=== PATIENT | female | born 2000 | race Caucasian/White ===

== ENCOUNTER 2023-08-04 14:16 | Inpatient (IN) | payer OTHER ==
[~2023-08-04 14:16] MED LIST: Bupivacaine 0.25% HCL 30 ML VIAL ONE
[2023-08-04] MEDS ORDERED: hydrALAZINE 20 MG/ML VIAL SLOW IVP PRN ×2 (17:49→17:55)
[2023-08-04] MEDS ORDERED: HYDROcodone/Acetaminophen 5/325 mg Tablet PO PRN (17:55)
[2023-08-04] MEDS ORDERED: Lidocaine 1% (PF) 30 ML VIAL SC PRN (17:55)
[2023-08-04] MEDS ORDERED: Ibuprofen 800 MG TAB PO PRN (17:55)
[2023-08-04] MEDS ORDERED: Promethazine HCl 25 MG/ML VIAL IM PRN (17:55)
[2023-08-04] MEDS ORDERED: Diphenoxylate HCl/Atropine Tablet PO PRN (17:55)
[2023-08-04] MEDS ORDERED: Methylergonovine 0.2 MG/ML VIAL IM PRN (17:55)
[2023-08-04] MEDS ORDERED: Acetaminophen 500 MG TAB PO PRN (17:55)
[2023-08-04] MEDS ORDERED: Ondansetron PF 4 MG/2 ML Vial IVP PRN (17:55)
[2023-08-04] MEDS ORDERED: Oxytocin 30 units/NS 500 ML 500 ML IV SCH (18:00)
[2023-08-04] MEDS ORDERED: Lactated Ringer's 1,000 ML IV SCH (18:00)
[2023-08-04 19:06] LABS: #Eosinphils 0.1 10x3/uL (0.0-0.5); #Monocytes 0.9 10x3/uL (0.0-1.1); #Neutrophils 7.8 10x3/uL (1.5-8.4); %Basophils 0.4 % (0.0-2.0); %Eosinophils 0.5 % (0.0-6.0); %Lymphocytes 15.2 % (18.0-47.0); %Monocytes 8.7 % (0.0-10.0); %Neutrophils 73.4 % (40.0-75.0); Hematocrit 28.3 % (34.9-44.5); Hemoglobin 8.9 g/dL (12.0-15.5); Mean Corpuscular HGB CONC 31.4 g/dL (32.0-36.0); Mean Corpuscular Hemoglobin 23.5 pg (27.0-33.0); Mean Corpuscular Volume 74.7 fl (81.6-98.3); Mean Platelet Volume 11.9 fl (7.4-10.4); Platelet Count 121 10x3/uL (150-450); RBC Distribution Width 14.2 % (11.5-14.5); Red Blood Cell (RBC) Count 3.79 10x6/uL (3.90-5.03); White Blood Cell (WBC) Count 10.6 10x3/uL (3.5-10.5)
[2023-08-04 19:14] LABS: ALT (SGPT) 11 U/L (8-55); AST (SGOT) 20 U/L (5-34); Albumin 3.5 g/dL (3.5-5.0); Alkaline Phosphatase 184 U/L (40-110); Anion Gap 12 mmol/L (10-20); BUN (Urea Nitrogen) 6 mg/dL (7.0-18.7); Bilirubin, Total 0.3 mg/dL (0.2-1.2); Calc. Creatinine Clearance 0 mL/min (70-130); Calcium 8.6 mg/dL (7.8-10.44); Carbon Dioxide 22 mmol/L (22-29); Chloride 107 mmol/L (98-107); Estimated GFR 127; Globulin 2.7 g/dL (2.4-3.5); Glucose 72 mg/dL (70-105); Potassium 3.5 mmol/L (3.5-5.1); Protein, Total 6.2 g/dL (6.0-8.3); Sodium 137 mmol/L (136-145)
[2023-08-04 19:31] LABS: HBSAg Index 0.22 S/CO (0-0.99); Hep B Surf Ag - L&D Non-Reactive S/CO (NonReactive); Syphilis Antibody Nonreactive (Nonreactive); Syphilis Antibody Index 0.04 S/CO (<1.00 Non-Reactive)
[2023-08-04 19:41] LABS: Bilirubin Neg (Negative); Blood, Urine 250 (Negative); Clarity Clear (Clear); Glucose, Urine (Dipstick) Normal (Negative); Ketone, Urine Negative (Negative); Leukocyte Negative (Negative); Nitrite Negative (Negative); Protein, Urine (Dipstick) Negative (Neg-Trace); Urobilinogen Normal mg/dL (Less than 2)
[2023-08-04 19:59] VITALS: BMI 26.1
[2023-08-04 19:59] LABS: Bacteria/HPF Rare-Few HPF (None Seen); CAUTI Indications for Culture Pregnancy; Squamous Epithelial 0-3 HPF (0-3); WBC/HPF 0-3 HPF (0-3)
[2023-08-04 20:00] LABS: Urine Culture Reflex Yes Yes
[2023-08-04 20:23] LABS: Creatinine, Urine 28.21 mg/dL (47-110); Protein, Urine Random Quant Less than 10 mg/dL (1-14)
[2023-08-04 20:34] LABS: Anisocytosis MODERATE=16-30 cells (100X) (0-5/hpf)
[2023-08-04 20:35] LABS: Elliptocytes SLIGHT = 2-5 cells (100X) (0-1/hpf); Hypochromia SLIGHT = 6-15 cells (100X) (0-5/hpf); Microcytosis MARKED = >30 cells (100X) (0-5/hpf)
[2023-08-04 20:36] LABS: Platelet Adequacy Comment PLT clumps seen-ADEQ; Tear Drops SLIGHT = 2-5 cells (100X) (0-1/hpf)
[2023-08-04] MEDS: Misoprostol 100 MCG TAB VAG SCH (23:30)
[2023-08-05] MEDS: fentaNYL 50 mcg/mL 1 mL Vial SLOW IVP PRN (06:50)
[2023-08-05] MEDS: fentaNYL/Ropivacaine Epidural 100 ML ONE (09:40)
[2023-08-05] MEDS ORDERED: fentaNYL 2 mcg/Ropivacaine 0.2% Epidural 100 ML CADD EPIDURAL SCH (10:30)
[2023-08-05] MEDS ORDERED: Communication Order-Pharmacy FS SCH (10:30)
[2023-08-05] MEDS ORDERED: Promethazine HCl 25 MG/ML VIAL IM PRN (10:30)
[2023-08-05] MEDS ORDERED: Naloxone HCl 0.4 mg/ml Vial IVP PRN ×2 (10:30)
[2023-08-05] MEDS ORDERED: Moisturizing Cream (Eucerin) 113 GM JAR TOP PRN (10:30)
[2023-08-05] MEDS ORDERED: ePHEDrine Sulfate 50 MG/10 ML VIAL SLOW IVP PRN (10:30)
[2023-08-05] MEDS ORDERED: Lactated Ringer's 500 ML IV PRN (10:30)
[2023-08-05] MEDS ORDERED: diphenhydrAMINE 50 MG/ML VIAL IVP PRN (10:30)
[2023-08-05] MEDS: Carboprost 250 MCG/ML AMP IM PRN (19:40)
[2023-08-05] MEDS: Misoprostol 200 MCG TAB PR PRN (19:41)
[2023-08-05] MEDS: Ondansetron PF 4 MG/2 ML Vial IVP PRN (19:59)
[2023-08-05] MEDS: Oxytocin 30 units/NS 500 ML 500 ML IV SCH (20:52)
[2023-08-05] MEDS ORDERED: Benzocaine-Menthol 82.5 ML CAN TOP PRN (23:18)
[2023-08-06 05:55] LABS: Hematocrit 20.1 % (34.9-44.5); Hemoglobin 6.3 g/dL (12.0-15.5); Mean Corpuscular HGB CONC 31.3 g/dL (32.0-36.0); Mean Corpuscular Hemoglobin 23.4 pg (27.0-33.0); Mean Corpuscular Volume 74.7 fl (81.6-98.3); Mean Platelet Volume 11.8 fl (7.4-10.4); Platelet Count 166 10x3/uL (150-450); RBC Distribution Width 14.6 % (11.5-14.5); Red Blood Cell (RBC) Count 2.69 10x6/uL (3.90-5.03); White Blood Cell (WBC) Count 21.4 10x3/uL (3.5-10.5)
[2023-08-06 06:54] LABS: Lymphocytes 7 % (21-51); Monocytes 3 % (0-10)
[2023-08-06 06:58] LABS: Microcytosis SLIGHT = 6-15 cells (100X) (0-5/hpf); Neutrophil 90 % (42-75)
[2023-08-06 06:59] LABS: Platelet Adequacy Comment Appears Adequate
[2023-08-06 07:01] LABS: MDiff Complete? YES
[2023-08-06] MEDS: Acetaminophen 325 MG TAB PO PRN (09:37)
[2023-08-06] MEDS: Prenatal Vitamin 1 TAB PO SCH (12:44)
[2023-08-06] MEDS: Ferrous Sulfate 325 MG TAB PO SCH (12:44)
[2023-08-06] MEDS: Polyethylene Glycol 3350 17 GM Packet PO SCH ×2 (12:45→21:20)
[2023-08-06] MEDS: Ibuprofen 800 MG TAB PO SCH (13:40)
[2023-08-06 15:24] LABS: Hematocrit 20.2 % (34.9-44.5); Hemoglobin 6.8 g/dL (12.0-15.5)
[2023-08-06 23:11] LABS: Hematocrit 27.4 % (34.9-44.5); Hemoglobin 8.9 g/dL (12.0-15.5)
[2023-08-07 07:16] LABS: Hematocrit 23.5 % (34.9-44.5); Hemoglobin 7.7 g/dL (12.0-15.5)
[2023-08-07] MEDS: Prenatal Vitamin 1 TAB PO SCH (08:13)
[2023-08-07] MEDS: Ferrous Sulfate 325 MG TAB PO SCH (08:13)
[2023-08-07 12:20] VITALS: BP 143/80; TEMP 98.1
[2023-08-07 12:21] LABS: Hematocrit 23.5 % (34.9-44.5); Hemoglobin 7.7 g/dL (12.0-15.5)
== END 2023-08-07 14:50 | disposition home or self-care (01) | DRG 768 ==
LOC: CSHLD/OP 14:16 → CSHLD 18:25 → CSHPP 08-05 22:50
PROVIDERS: ADMIT Student in an Organized Health Care Education/Training Program; ATTEND Student in an Organized Health Care Education/Training Program
PROC: 10E0XZZ Delivery of Products of Conception, External Approach (ICD-10-PCS; principal; 2023-08-05)
PROC: 0DQR0ZZ Repair Anal Sphincter, Open Approach (ICD-10-PCS; 2023-08-05)
PROC: 0W8NXZZ Division of Female Perineum, External Approach (ICD-10-PCS; 2023-08-05)
PROC: 30233N1 Transfusion of Nonautologous Red Blood Cells into Peripheral Vein, Percutaneous Approach (ICD-10-PCS; 2023-08-06)
DX: O13.4 Gestational [pregnancy-induced] hypertension without significant proteinuria, complicating childbirth (principal); Z37.0 Single live birth; Z3A.39 39 weeks gestation of pregnancy; O70.20 Third degree perineal laceration during delivery, unspecified; D50.9 Iron deficiency anemia, unspecified; O90.81 Anemia of the puerperium
CPT/HCPCS: 36415; 36430; 51702; 76815; 80053; 81001; 82570; 84156; 85014; 85018; 85025; 86780; 86850; 86900; 86901; 87086; 87340; J0665; J2405; J2590; J3010; J3490; P9016

== ENCOUNTER 2023-08-07 21:11 | Emergency (ER) | payer OTHER ==
[2023-08-07 22:39] LABS: #Basophils 0.1 10x3/uL (0.0-0.2); #Eosinphils 0.1 10x3/uL (0.0-0.5); #Monocytes 1.3 10x3/uL (0.0-1.1); #Neutrophils 12.7 10x3/uL (1.5-8.4); %Basophils 0.4 % (0.0-2.0); %Eosinophils 0.7 % (0.0-6.0); %Lymphocytes 10.8 % (18.0-47.0); %Monocytes 8.1 % (0.0-10.0); %Neutrophils 77.4 % (40.0-75.0); Hematocrit 26.1 % (34.9-44.5); Hemoglobin 8.5 g/dL (12.0-15.5); Mean Corpuscular HGB CONC 32.6 g/dL (32.0-36.0); Mean Corpuscular Hemoglobin 25.7 pg (27.0-33.0); Mean Corpuscular Volume 78.9 fl (81.6-98.3); Mean Platelet Volume 11.6 fl (7.4-10.4); Platelet Count 223 10x3/uL (150-450); RBC Distribution Width 15.9 % (11.5-14.5); Red Blood Cell (RBC) Count 3.31 10x6/uL (3.90-5.03); White Blood Cell (WBC) Count 16.4 10x3/uL (3.5-10.5)
[2023-08-07 22:49] LABS: ALT (SGPT) 13 U/L (8-55); AST (SGOT) 27 U/L (5-34); Albumin 3.3 g/dL (3.5-5.0); Alkaline Phosphatase 110 U/L (40-110); Anion Gap 14 mmol/L (10-20); BUN (Urea Nitrogen) 8 mg/dL (7.0-18.7); Bilirubin, Total 0.4 mg/dL (0.2-1.2); Calc. Creatinine Clearance 0 mL/min (70-130); Calcium 8.5 mg/dL (7.8-10.44); Carbon Dioxide 22 mmol/L (22-29); Chloride 107 mmol/L (98-107); Estimated GFR 125; Globulin 2.4 g/dL (2.4-3.5); Glucose 82 mg/dL (70-105); Potassium 3.8 mmol/L (3.5-5.1); Protein, Total 5.7 g/dL (6.0-8.3); Sodium 139 mmol/L (136-145)
== END 2023-08-07 23:17 | disposition home or self-care (01) ==
LOC: CSHERS 21:11
DX: O16.5 Unspecified maternal hypertension, complicating the puerperium (principal)
CPT/HCPCS: 36415; 80053; 99283